=== PATIENT | female | born 1995 | race Caucasian/White ===

== ENCOUNTER 2021-08-07 16:40 | Inpatient (IN) | payer OTHER, SELFPAY ==
[2021-08-07 17:18] VITALS: BMI 28.3
[2021-08-07] MEDS ORDERED: hydrALAZINE 20 MG/ML VIAL SLOW IVP PRN ×2 (17:41→19:30)
[2021-08-07] MEDS ORDERED: Methylergonovine 0.2 MG/ML VIAL IM PRN (19:30)
[2021-08-07] MEDS ORDERED: NS w/ Oxytocin 30 units 500 ML IV SCH (19:30)
[2021-08-07] MEDS ORDERED: Diphenoxylate HCl/Atropine Tablet PO PRN ×2 (19:30)
[2021-08-07] MEDS ORDERED: Lidocaine 1% (PF) 30 ML VIAL SC PRN (19:30)
[2021-08-07] MEDS ORDERED: Promethazine HCl 25 MG/ML VIAL IM PRN (19:30)
[2021-08-07] MEDS ORDERED: Lactated Ringer's 1,000 ML IV PRN (19:30)
[2021-08-07] MEDS ORDERED: Misoprostol 200 MCG TAB PR PRN (19:30)
[2021-08-07] MEDS ORDERED: Ibuprofen 800 MG TAB PO PRN (19:30)
[2021-08-07] MEDS ORDERED: HYDROcodone/Acetaminophen 5/325 mg Tablet PO PRN ×2 (19:30)
[2021-08-07] MEDS ORDERED: Butorphanol Tartrate 1 MG/ML VIAL SLOW IVP PRN (19:30)
[2021-08-07] MEDS ORDERED: Carboprost 250 MCG/ML AMP IM PRN (19:30)
[2021-08-07] MEDS ORDERED: Ondansetron PF 4 MG/2 ML Vial IVP PRN (19:30)
[2021-08-07 20:28] LABS: Hemoglobin 15.2 g/dL (12.0-15.5); Mean Corpuscular HGB CONC 35.9 g/dL (32.0-36.0); Mean Corpuscular Hemoglobin 34.5 pg (27.0-33.0); Mean Corpuscular Volume 95.9 fl (81.6-98.3); Mean Platelet Volume 10.9 fl (7.4-10.4); Platelet Count 181 10x3/uL (150-450); RBC Distribution Width 14.1 % (11.5-14.5); Red Blood Cell (RBC) Count 4.41 10x6/uL (3.90-5.03); White Blood Cell (WBC) Count 15.5 10x3/uL (3.5-10.5)
[2021-08-07 20:57] LABS: Hep B Surf Ag Non-Reactive S/CO (NonReactive)
[2021-08-07 20:58] LABS: Syphilis Antibody Nonreactive (Nonreactive); Syphilis Antibody Index 0.02 S/CO (<1.00 Non-Reactive)
[2021-08-07 21:04] LABS: HBSAg Index 0.21 S/CO (0-0.99)
[2021-08-07 21:31] LABS: SARS-CoV-2 NAA Rapid Test Not Detected (NotDetected)
[2021-08-07] MEDS ORDERED: Fentanyl 2 mcg/Bup 0.1% Cadd 100 ML ONE (23:42)
[2021-08-08] MEDS ORDERED: Acetaminophen 325 MG TAB PO PRN (00:11)
[2021-08-08] MEDS ORDERED: Lactated Ringer's 500 ML IV PRN (00:11)
[2021-08-08] MEDS ORDERED: Hydrocerin (Eucerin) Cream 120 gm Jar TOP PRN (00:11)
[2021-08-08] MEDS ORDERED: Naloxone HCl 0.4 mg/ml Vial IVP PRN ×2 (00:11)
[2021-08-08] MEDS ORDERED: ePHEDrine Sulfate 50 MG/10 ML VIAL SLOW IVP PRN (00:11)
[2021-08-08] MEDS ORDERED: Ondansetron PF 4 MG/2 ML Vial IVP PRN ×2 (00:11→04:28)
[2021-08-08] MEDS ORDERED: Promethazine HCl 25 MG/ML VIAL IM PRN (00:11)
[2021-08-08] MEDS ORDERED: diphenhydrAMINE 50 MG/ML VIAL IVP PRN (00:11)
[2021-08-08] MEDS ORDERED: Fentanyl 2 mcg/Bupivacaine 0.1% Cassette 100 ML EPIDURAL SCH (00:15)
[2021-08-08] MEDS ORDERED: Communication Order-Pharmacy FS SCH (00:15)
[2021-08-08] MEDS ORDERED: Carboprost 250 MCG/ML AMP ONE (02:19)
[2021-08-08] MEDS ORDERED: Methylergonovine 0.2 MG/ML VIAL ONE (02:20)
[2021-08-08] MEDS ORDERED: Benzocaine-Menthol 82.5 ML CAN TOP PRN (04:28)
[2021-08-08] MEDS ORDERED: Bisacodyl 10 MG SUPP PR PRN (04:28)
[2021-08-08] MEDS ORDERED: hydrALAZINE 20 MG/ML VIAL SLOW IVP PRN (04:28)
[2021-08-08] MEDS ORDERED: Milk Of Magnesia 30 ML UDCUP PO PRN (04:28)
[2021-08-08] MEDS ORDERED: NS w/ Oxytocin 30 units 500 ML IV SCH (04:28)
[2021-08-08] MEDS ORDERED: Methylergonovine 0.2 MG/ML VIAL IM PRN (04:28)
[2021-08-08] MEDS ORDERED: Boostrix 0.5 ML (Tdap) VIAL IM ONE (04:28)
[2021-08-08] MEDS ORDERED: Misoprostol 200 MCG TAB VAG PRN (04:28)
[2021-08-08] MEDS ORDERED: HYDROcodone/Acetaminophen 5/325 mg Tablet PO PRN ×2 (04:28)
[2021-08-08] MEDS: Ibuprofen 800 MG TAB PO SCH ×4 (06:04→21:46)
[2021-08-08] MEDS: Docusate 100 MG CAP PO SCH ×4 (06:25→21:46)
[2021-08-08] MEDS: Ferrous Sulfate 325 MG TAB PO SCH ×2 (07:47→17:38)
[2021-08-08] MEDS: Prenatal Vitamin 1 TAB PO SCH (08:59)
[2021-08-09] MEDS: Ibuprofen 800 MG TAB PO SCH ×2 (06:19→15:15)
[2021-08-09 07:40] VITALS: BP 110/63; TEMP 98.2
[2021-08-09] MEDS: Ferrous Sulfate 325 MG TAB PO SCH ×2 (07:40→17:00)
[2021-08-09] MEDS: Docusate 100 MG CAP PO SCH (09:04)
[2021-08-09] MEDS: Prenatal Vitamin 1 TAB PO SCH (09:04)
== END 2021-08-09 19:00 | disposition home or self-care (01) | DRG 807 ==
LOC: CSHLD/OP 16:40 → CSHLD 20:05 → CSHPED 08-08 05:15
PROVIDERS: ADMIT Obstetrics & Gynecology; ATTEND Obstetrics & Gynecology
PROC: 10E0XZZ Delivery of Products of Conception, External Approach (ICD-10-PCS; principal; 2021-08-09)
PROC: 0KQM0ZZ Repair Perineum Muscle, Open Approach (ICD-10-PCS; 2021-08-09)
DX: O70.1 Second degree perineal laceration during delivery (principal); Z37.0 Single live birth; Z3A.39 39 weeks gestation of pregnancy; Z20.822 Contact with and (suspected) exposure to COVID-19
CPT/HCPCS: 36415; 85027; 86780; 86850; 86900; 86901; 87340; U0002

== ENCOUNTER 2023-03-24 15:13 | Day surgery (SDC) | payer OTHER ==
[2023-03-24] MEDS ORDERED: hydrALAZINE 20 MG/ML VIAL SLOW IVP PRN (15:24)
== END 2023-03-24 16:44 | disposition left against medical advice (07) ==
LOC: CSHLD/OP 15:13
PROVIDERS: ATTEND Obstetrics & Gynecology
DX: O47.1 False labor at or after 37 completed weeks of gestation (principal); O46.93 Antepartum hemorrhage, unspecified, third trimester; Z79.899 Other long term (current) drug therapy; Z3A.40 40 weeks gestation of pregnancy
CPT/HCPCS: 76815; 99282

== ENCOUNTER 2023-03-25 02:34 | Inpatient (IN) | payer OTHER ==
[2023-03-25] MEDS ORDERED: Boostrix 0.5 ML (Tdap) VIAL (>/=7 yrs of age) IM ONE (02:59)
[2023-03-25] MEDS ORDERED: Milk Of Magnesia 30 ML UDCUP PO PRN (02:59)
[2023-03-25] MEDS ORDERED: Tranexamic Acid 1,000 MG/10 ML VIAL IVP PRN (02:59)
[2023-03-25] MEDS ORDERED: Promethazine HCl 25 MG/ML VIAL IM PRN (02:59)
[2023-03-25] MEDS ORDERED: Zolpidem Tartrate 5 MG TAB PO PRN (02:59)
[2023-03-25] MEDS ORDERED: Docusate 100 MG CAP PO PRN (02:59)
[2023-03-25] MEDS ORDERED: Bisacodyl 10 MG SUPP PR PRN (02:59)
[2023-03-25] MEDS ORDERED: hydrALAZINE 20 MG/ML VIAL SLOW IVP PRN ×2 (02:59)
[2023-03-25] MEDS ORDERED: Ondansetron PF 4 MG/2 ML Vial IVP PRN (02:59)
[2023-03-25] MEDS ORDERED: Lidocaine 1% (PF) 30 ML VIAL ONE (03:16)
[2023-03-25] MEDS ORDERED: fentaNYL 50 mcg/mL 1 mL Vial ONE (03:17)
[2023-03-25] MEDS ORDERED: fentaNYL 50 mcg/mL 1 mL Vial SLOW IVP SCH (03:45)
[2023-03-25] MEDS: Lactated Ringer's 1,000 ML IV SCH ×2 (03:58→12:24)
[2023-03-25] MEDS: Ampicillin/Sulbactam 3 GM in Sodium Chloride 0.9% 100 ML IVPB SCH ×3 (03:59→20:28)
[2023-03-25] MEDS: Ibuprofen 800 MG TAB PO PRN ×2 (04:53→15:27)
[2023-03-25] MEDS ORDERED: Ampicillin/Sulbactam 3 GM in Sodium Chloride 0.9% 100 ML IVPB SCH (09:00)
[2023-03-25] MEDS: Acetaminophen 500 MG TAB PO PRN ×2 (09:33→20:28)
[2023-03-25] MEDS: Ferrous Sulfate 325 MG TAB PO SCH (10:13)
[2023-03-26 05:05] LABS: #Basophils 0.1 10x3/uL (0.0-0.2); #Eosinphils 0.3 10x3/uL (0.0-0.5); #Monocytes 0.6 10x3/uL (0.0-1.1); #Neutrophils 5.4 10x3/uL (1.5-8.4); %Basophils 0.7 % (0.0-2.0); %Eosinophils 2.9 % (0.0-6.0); %Lymphocytes 27.2 % (18.0-47.0); %Neutrophils 61.2 % (40.0-75.0); Hematocrit 22.5 % (34.9-44.5); Hemoglobin 7.8 g/dL (12.0-15.5); Mean Corpuscular HGB CONC 34.7 g/dL (32.0-36.0); Mean Corpuscular Hemoglobin 34.7 pg (27.0-33.0); Mean Platelet Volume 9.3 fl (7.4-10.4); Platelet Count 136 10x3/uL (150-450); RBC Distribution Width 14.9 % (11.5-14.5); Red Blood Cell (RBC) Count 2.25 10x6/uL (3.90-5.03); White Blood Cell (WBC) Count 8.8 10x3/uL (3.5-10.5)
[2023-03-26] MEDS: Lactated Ringer's 1,000 ML IV SCH (06:13)
[2023-03-26] MEDS: Ferrous Sulfate 325 MG TAB PO SCH (06:14)
[2023-03-26] MEDS: Ibuprofen 800 MG TAB PO PRN (08:03)
[2023-03-26 08:14] VITALS: BP 112/59; TEMP 98.2
== END 2023-03-26 08:50 | disposition home or self-care (01) | DRG 776 ==
LOC: CSHLD/OP 02:34 → CSHLD 03:56 → CSHPP 04:57
PROVIDERS: ADMIT Obstetrics & Gynecology; ATTEND Obstetrics & Gynecology
DX: O72.1 Other immediate postpartum hemorrhage (principal); O86.4 Pyrexia of unknown origin following delivery
CPT/HCPCS: 85025; J0295; J2001; J3010; J3490; J7120